=== PATIENT | male | born 1940 | race Two or more races ===

== ENCOUNTER 2022-08-25 07:25 | Outpatient (CLI) | payer OTHER | END 2022-08-25 07:26 | disposition home or self-care (01) | LOC: NUCLEAR 07:25 | PROVIDERS: ATTEND Specialist | DX: I11.9 Hypertensive heart disease without heart failure (principal); I25.9 Chronic ischemic heart disease, unspecified | CPT/HCPCS: 78452; 93017; A9500 ==